=== PATIENT | female | born 1990 ===

== ENCOUNTER 2017-09-18 09:55 | Emergency (ER) | payer MEDICAID ==
[2017-09-18 10:05] VITALS: BMI 22.4
[2017-09-18 10:06] VITALS: RESP 18; O2SAT 100
[2017-09-18] MEDS ORDERED: Sodium Chloride 0.9% 2,000 ML IV STA (10:15)
--- NOTE | 2017-09-18 10:28 | ED PDOC ---
Arrival/HPI - General Chief Complaint: Abdominal Pain Time Seen by Provider: 09/18/17 10:14 Historian: Patient - History of Present Illness Narrative History of Present Illness (Text): 09/18/17 10:28 A 27 year old female edby lmp 04/29/17 of 23 weeks w/pmhx of c-sxns who denies any significant past medical, presents to the emergency department for contractions to the lower right side of suprapubic region. The patient states the pain is exacerbated by movement and exhalation. The patient notes that she has associated nausea and vomiting. She denies any dizziness, recent symptoms of infective foci, fever, or any other complaints at this time. The patient notes that she recently moved to [place] from [place] and she has been following up with her family care doctor and is currently on vitamins and has had a ultrasound for this . She states that she had no difficulties with her previous pregnancies and that was twin gestation. LMP: 04-29-17 09/18/17 13:08 09/18/17 13:10 Time/Duration: Prior to Arrival Symptom Onset: Sudden Symptom Course: Unchanged Quality: Pressure, Cramping Severity Level: Mild Activities at Onset: Light Context: Home Past Medical History - Provider Review Nursing Documentation Reviewed: Yes - Infectious Disease Hx of Infectious Diseases: None - Psychiatric Hx Substance Use: No - Surgical History Hx Section: Yes (x2) Family/Social History - Physician Review Nursing Documentation Reviewed: Yes Family/Social History: No Known Family HX Smoking Status: Never Smoked Hx Alcohol Use: No Hx Substance Use: No Allergies/Home Meds Allergies/Adverse Reactions: Allergies No Known Allergies Allergy (Verified 09/18/17 10:15) Home Medications: Home Meds Medication Instructions Recorded Confirmed No Known Home Med 09/18/17 09/18/17 Review of Systems - Physician Review All systems were reviewed & negative as marked: Yes - Review of Systems Constitutional: absent: Fevers Eyes: Normal ENT: Normal Respiratory: Normal Cardiovascular: Normal Gastrointestinal: Abdominal Pain (superpubic pqin ), Nausea Genitourinary Female: Normal Musculoskeletal: Normal Skin: Normal Neurological: absent: Dizziness Endocrine: Normal Hemo/Lymphatic: Normal Psychiatric: Normal Physical Exam Vital Signs Reviewed: Yes Vital Signs Temp Pulse Resp BP Pulse Ox 09/18/17 12:41 86 18 127/56 L 100 09/18/17 10:05 98.0 F 82 18 141/75 100 Temperature: Afebrile Blood Pressure: Normal Pulse: Regular Respiratory Rate: Normal Appearance: Positive for: Well-Appearing, Non-Toxic, Comfortable Pain Distress: Mild Mental Status: Positive for: Alert and Oriented X 3 - Systems Exam Head: Present: Atraumatic, Normocephalic Pupils: Present: PERRL Extroacular Muscles: Present: EOMI Conjunctiva: Present: Normal Mouth: Present: Moist Mucous Membranes Neck: Present: Normal Range of Motion Respiratory/Chest: Present: Clear to Auscultation, Good Air Exchange. No: Respiratory Distress, Accessory Muscle Use Cardiovascular: Present: Regular Rate and Rhythm, Normal S1, S2. No: Murmurs Abdomen: Present: Other (23 week gravid size uterus ). No: Tenderness, Distention, Peritoneal Signs Back: Present: Normal Inspection Upper Extremity: Present: Normal Inspection. No: Cyanosis, Edema Lower Extremity: Present: Normal Inspection. No: Edema Neurological: Present: GCS=15, CN II-XII Intact, Speech Normal, Motor Func Grossly Intact, Normal Sensory Function, Normal Cerebellar Funct, Norm Deep Tendon Reflexes, Gait Normal, Memory Normal Skin: Present: Warm, Dry, Normal Color. No: Rashes Psychiatric: Present: Alert, Oriented x 3, Normal Insight, Normal Concentration Medical Decision Making ED Course and Treatment: 09/18/17 10:37 Impression: A 27 year old female 23 weeks gravid with superpubic cramping. Differential Diagnosis included but are not limited to: Plan: -- Reassess and disposition Progress Notes: 09/18/17 13:[address] 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 - Lab Interpretations Lab Results: 09/18/17 10:50 09/18/17 10:50 Lab Results 09/18/17 11:19: Blood Type A POSITIVE, Antibody Screen Negative, BBK History Checked No verified bt 09/18/17 10:50: Urine Color Yellow, Urine Appearance Clear, Urine pH 7.5, Ur Specific Floral 1.020, Urine Protein Negative, Urine Glucose (UA) Negative, Urine Ketones Negative, Urine Blood Negative, Urine Nitrate Negative, Urine Bilirubin Negative, Urine Urobilinogen 0.2, Ur Leukocyte Esterase Negative, Urine HCG, Qual Positive 09/18/17 10:50: Beta HCG, Quant [id number] H 09/18/17 10:50: Sodium 139, Potassium 3.7, Chloride 107, Carbon Dioxide 22, Anion Gap 13, BUN 6 L, Creatinine 0.5 L, Est GFR ( Amer) > 60, Est GFR ( Non-Af Amer) > 60, Random Glucose 77, Calcium 8.8, Total Bilirubin 0.1 L, AST 17 , ALT 17, Alkaline Phosphatase 56, Total Protein 7.2, Albumin 3.7, Globulin 3.4 , Albumin/Globulin Ratio 1.1 09/18/17 10:50: PT 11.6, INR 1.01, APTT 31.9 09/18/17 10:50: WBC 11.1 H, RBC 3.56, Hgb 9.5 L, Hct 29.3 L, MCV 82.3, MCH 26.7 , MCHC 32.4, RDW 14.9 H, Plt Count 261, MPV 10.7, Gran % 87.3 H, Lymph % (Auto) 9.1 L, [place] % (Auto) 3.3, Eos % (Auto) 0.2 L, Baso % (Auto) 0.1, Gran # 9.69 H, Lymph # (Auto) 1.0 L, [place] # (Auto) 0.4, Eos # (Auto) 0.0, Baso # (Auto) 0.01 - RAD Interpretation Radiology Orders: 09/18/17 10:39 AGE [US] Stat - Medication Orders Current Medication Orders: Discontinued Medications Acetaminophen (Tylenol 325mg Tab) 650 mg PO STAT STA Stop: 09/18/17 10:24 Last Admin: 09/18/17 10:32 Dose: 650 mg MAR Pain/Vitals Document 09/18/17 10:32 [facility] (Rec: 09/18/17 10:33 [facility] [id number]) Pain Reassessment Is This A Pain ReAssessment? No Sleep Is patient sleeping during reassessment? No Presence of Pain Presence of Pain Yes Pain Scale Used Pain Scale Used Numeric Location Left, Right or Bilateral Bilateral Upper or Lower Lower Pain Location Body Site Abdomen Intensity 5 Sodium Chloride (Sodium Chloride 0.9%) 2,000 mls @ 1,000 mls/hr IV .Q2H STA Stop: 09/18/17 12:14 Last Admin: 09/18/17 10:33 Dose: 1,000 mls/hr eMAR Start Stop Document 09/18/17 10:33 [facility] (Rec: 09/18/17 10:34 [facility] [id number]) Intravenous Solution Start Date 09/18/17 Start Time 10:34 End Date 09/18/17 End time 12:35 Total Infusion Time 121 - Scribe Statement The provider has reviewed the documentation as recorded by the Sade Aldridge Provider Scribe Attestation: All medical record entries made by the Scribe were at my direction and personally dictated by me. I have reviewed the chart and agree that the record accurately reflects my personal performance of the history, physical exam, medical decision making, and the department course for this patient. I have also personally directed, reviewed, and agree with the discharge instructions and disposition. Disposition/Present on Arrival - Present on Arrival Any Indicators Present on Arrival: No History of DVT/PE: No History of Uncontrolled Diabetes: No Urinary Catheter: No History of Decub. Ulcer: No History Surgical Site Infection Following: None - Disposition Have Diagnosis and Disposition been Completed?: Yes Diagnosis: Jefferson Hick's contraction Disposition: Trans to Other Acute Care Hosp Disposition Time: 13:16 Patient Plan: Transfer To Patient Problems: Current Active Problems Problem Status Onset Jefferson Hick's contraction Acute Condition: IMPROVED Referrals: PCP,NO [Primary Care Provider] - Follow up with primary Forms: [employer] (German)
[2017-09-18 11:10] LABS: PH,URINE 7.5 (4.7-8.0); URINE BILIRUBIN NEGATIVE (NEGATIVE); URINE BLOOD NEGATIVE (NEGATIVE); URINE GLUCOSE (UA) NEGATIVE (NEGATIVE); URINE LEUKOCYTE ESTERASE NEGATIVE Leu/uL (NEGATIVE); URINE PROTEIN NEGATIVE mg/dL (<30 mg/dL); URINE UROBILINOGEN 0.2 E.U./dL (<1 E.U./dL)
[2017-09-18 11:12] LABS: URINE APPEARANCE CLEAR (CLEAR); URINE COLOR YELLOW (YELLOW)
[2017-09-18 11:18] LABS: ALB/GLOB RATIO 1.1 (1.1-1.8); ALBUMIN 3.7 g/dL (3.0-4.8); ALT/SGPT 17 U/L (7-56); AST/SGOT 17 U/L (14-36); BLOOD UREA NITROGEN 6 mg/dL (7-21); CALCIUM 8.8 mg/dL (8.4-10.5); GFR AFRICAN-AMERICAN > 60; GFR NON-AFRICAN AMERICAN > 60
[2017-09-18 11:20] LABS: BASO # 0.01 K/mm3 (0.0-2.0); BASO % 0.1 % (0.0-3.0); EOS % 0.2 % (1.5-5.0); GRAN # 9.69 (1.4-6.5); GRAN % 87.3 % (50.0-68.0); HCG,QUALITATIVE URINE POSITIVE (NEGATIVE); HEMOGLOBIN 9.5 g/dL (12.0-16.0); INR 1.01 (0.93-1.08); LYMPH % 9.1 % (22.0-35.0); MEAN CELL VOLUME 82.3 fl (80.0-105.0); MEAN CORPUSCULAR HEMOGLOBIN 26.7 pg (25.0-35.0); MEAN CORPUSCULAR HGB CONC 32.4 g/dl (31.0-37.0); MEAN PLATELET VOLUME 10.7 fl (7.0-11.0); MONO # 0.4 (0.1-0.6); MONO % 3.3 % (1.0-6.0); PARTIAL THROMBOPLASTIN TIME 31.9 Seconds (25.1-36.5); PROTHROMBIN TIME 11.6 SECONDS (9.4-12.5); RBC 3.56 10^6/uL (3.5-6.1); RED CELL DISTRIBUTION WIDTH 14.9 % (11.5-14.5); WHITE BLOOD COUNT 11.1 10^3/ul (4.5-11.0)
--- NOTE | 2017-09-18 12:09 | US ---
PROCEDURE: Ultrasound age HISTORY: abdominal pain right-side COMPARISON: TECHNIQUE: FINDINGS: A single viable intrauterine is seen. The heart rate is 140. There is motion. There is a cephalic present a batista. The placenta is posterior and free of the os. BPD equals 21 weeks 3 days Abdominal circumference equals 21 weeks 6 days Head circumference equals 21 weeks 3 days Femur length equals 21 weeks 4 days. Ultrasound age equals 21 weeks 4 days. Estimated date of delivery is 01/25/2018. This is a limited study without a complete anatomic survey. IMPRESSION: Single viable intrauterine with a gestational age of 21 weeks 4 days.
[2017-09-18 14:17] VITALS: BP 113/59; PULSE 80
[2017-09-18 14:18] VITALS: TEMP 98.2
== END 2017-09-18 14:25 | disposition short-term general hospital (02) ==
LOC: ED 09:55
DX: O47.02 False labor before 37 completed weeks of gestation, second trimester (principal); Z3A.21 21 weeks gestation of pregnancy
CPT/HCPCS: 76815; 80053; 81003; 84702; 84703; 85025; 85610; 85730; 86850; 86900; 96360; 96361; 99284; J7040